=== PATIENT | male | born 1995 | race African-American/Black ===

== ENCOUNTER 2020-06-28 03:10 | Emergency (ER) | payer BC ==
[~2020-06-28] VITALS: Ht 188 cm; Wt 97.5 kg
[2020-06-28 03:19] VITALS: BP 149/79
[2020-06-28] MEDS ORDERED: ADDERALL 10 MG10 MG PO (03:24)
== END 2020-06-28 04:04 | disposition home or self-care (01) ==
LOC: M.ERS 03:10
DX: S61.211A Laceration without foreign body of left index finger without damage to nail, initial encounter (principal); Z88.2 Allergy status to sulfonamides; W26.0XXA Contact with knife, initial encounter; Y93.89 Activity, other specified; Y92.89 Other specified places as the place of occurrence of the external cause; Y99.8 Other external cause status

== ENCOUNTER 2020-07-04 17:06 | Emergency (ER) | payer BC ==
[~2020-07-04] VITALS: Ht 188 cm; Wt 95.3 kg
[~2020-07-04 17:06] MED LIST: ADDERALL 10 MG10 MG PO
[2020-07-04 17:47] LABS: ABSOLUTE BASOPHILS 0.1 thou/uL (0.0-0.2); ABSOLUTE EOSINOPHILS 0.2 thou/uL (0.0-0.7); ABSOLUTE LYMPHOCYTES 2.2 thou/uL (0.8-5.3); ABSOLUTE MONOCYTES 0.5 thou/uL (0.0-1.2); ABSOLUTE NEUTROPHILS 6.7 thou/uL (1.6-8.1); BASOPHILS 0.8 %; EOSINOPHILS 1.6 %; HEMOGLOBIN 15.8 gm/dL (14.0-18.0); LYMPHOCYTES 23.1 %; MCH 31.1 pg (26.0-34.0); MCHC 35.2 g/dL (28.0-37.0); MCV 88.4 fL (80.0-100.0); MONOCYTES 5.6 %; MPV 8.8 fl. (7.2-11.1); NUCLEATED RBCS 0 /100WBC; PLATELET COUNT* 281 thou/uL (150-400); POLYS 68.9 %; RBC 5.09 mil/uL (4.50-6.00); RDW-CV 12.8 % (10.5-14.5); WBC 9.7 thou/uL (4.0-11.0)
[2020-07-04 17:54] LABS: CALCIUM 8.7 mg/dL (8.5-10.1); CREATININE 1.4 mg/dL (0.6-1.3); POTASSIUM 3.9 mmol/L (3.5-5.1)
[2020-07-04 17:59] LABS: ALBUMIN 4.8 g/dL (3.4-5.0); TOTAL BILIRUBIN 0.6 mg/dL (<0.1-1.0); TOTAL PROTEIN 8.8 g/dL (6.4-8.2)
[2020-07-04 18:19] VITALS: BP 124/74
--- NOTE | 2020-07-05 13:17 | EKG ---
[place] [address] ELECTROCARDIOGRAM REPORT Name: YANIV WASSERMAN Room: [facility]#: [id number] Admission: 07/04/20 Attend Phys: Discharge: 07/04/20 Date of : 89 Date of Service: 07/04/20 1709 Report #: [id number] THIS REPORT FOR: //name// [facility] ED Test Date: 2020-07-04 Test Time: 17:09:07 Pat Name: YANIV WASSERMAN Department: Room: Gender: Patient Educator: : 1995 Requested By: Diane Martin Order Number: [id number] MD: Casey Bridges Measurements Intervals [place] Rate: 103 P: 45 NM: 159 QRS: 60 QRSD: 85 T: 44 QT: 338 QTc: 443 Interpretive Statements Sinus tachycardia Delayed R wave progression Baseline wander in lead(s) V1,V2 No previous ECG available for comparison Electronically Signed On 07-05-2020 13:17:14 CDT by Casey Bridges [email or web address] <ELECTRONICALLY SIGNED> By: Casey Bridges MD, [facility] 07/05/20 1317 1709 1709 Casey Bridges MD, [facility] /EPI
== END 2020-07-04 18:20 ==
LOC: M.ERS 17:06
PROVIDERS: Nurse Practitioner Family
DX: R07.89 Other chest pain (principal)